=== PATIENT | female | born 1945 ===

== ENCOUNTER 2020-11-13 08:45 | Inpatient (IN) | payer OTHER ==
[~2020-11-13] VITALS: Ht 152.4 cm; Wt 83.9 kg
[2020-11-13] MEDS ORDERED: AVAPRO75 MG PO (16:18)
[2020-11-13] MEDS ORDERED: LEVOTHYROXINE25 MCG PO (16:18)
[2020-11-13] MEDS ORDERED: NORVASC5 MG PO (16:19)
[2020-11-19] MEDS ORDERED: IRBESARTAN300 MG (16:33)
[2020-11-19] MEDS ORDERED: ALENDRONATE SOD70 MG (16:33)
[2020-11-19] MEDS ORDERED: VITAMIN D3250 MCG (16:33)
[2020-11-19] MEDS ORDERED: NORVASC2.5 MG (16:33)
[2020-11-19] MEDS ORDERED: SYNTHROID137 MCG (16:34)
[2020-11-21] MEDS ORDERED: OXYC1TAB9 PO (06:13)
[2020-11-21] MEDS ORDERED: BACTRIM DS TAB1 EACH PO (06:13)
[2020-11-21] MEDS ORDERED: XARELTO10 MG PO (06:13)
[2020-11-21] MEDS ORDERED: INTEGRA PLUS C1 EACH PO (06:13)
== END 2020-11-21 19:47 | DRG 470 ==
LOC: SURH 11-19 08:45 → O/R 11-19 10:01 → SURH 11-19 12:15
PROVIDERS: ADMIT Orthopaedic Surgery Sports Medicine; ATTEND Orthopaedic Surgery Sports Medicine
PROC: 0SRC0J9 Replacement of Right Knee Joint with Synthetic Substitute, Cemented, Open Approach (ICD-10-PCS; principal; 2020-11-19 12:15)
DX: M17.11 Unilateral primary osteoarthritis, right knee (principal); I10 Essential (primary) hypertension